=== PATIENT | female | born 1945 | race Caucasian/White ===

== ENCOUNTER → 2023-11-08 14:50 | Outpatient (REF) | payer MEDICARE, OTHER, SELFPAY | LOC: RAD 14:50 | PROVIDERS: ATTENDING PHYSICIAN Family Medicine | DX: R05.3 Chronic cough (principal) | CPT/HCPCS: 71046 ==

== ENCOUNTER 2023-11-12 00:47 | Emergency (ER) | payer MEDICARE, OTHER, SELFPAY ==
[2023-11-12 00:51] VITALS: BP 158/76
--- NOTE | 2023-11-12 01:59 | ED.GENMED ---
History of Present Illness
<Jyothi Campo DO, Resident - Last Filed: 11/12/23 03:31>
General
Chief Complaint: Throat Problem
Source: patient
Exam Limitations: none
Time Seen by Provider: 11/12/23 01:48
History of Present Illness
History of Present Illness:
Pt is a 78 -year-old female presenting to the ED with throat pain for the last 2 weeks. The symptoms begin to worsen tonight around 12:30 AM. She recently completed a course of antibiotics and is taking methylprednisolone taper. She has ongoing
sensations of phlegm buildup at the base of her throat which if she lays flat for too long make her feel like she cannot breathe. She has been coughing up phlegm mostly clear. She describes her cough as a continuous and cyclic cough that makes her
short of breath. She states she has no headaches, nausea, vomiting, diarrhea, chest pain, GI symptoms or pain elsewhere. She took 2 extra strength Tylenol tonight at 10:30 PM and 1 cetirizine. She recently her family medicine doctor who ordered
her a chest x-ray. They stated that lungs were clear.
Past History
<Jyothi Campo DO, Resident - Last Filed: 11/12/23 03:31>
Past History
ED Past Medical History: None
ED Past Surgical History: None
Social History
Personal:
Living: with family
Employment: Not employed
Review of Systems
<Jyothi Campo DO, Resident - Last Filed: 11/12/23 03:31>
Review of Systems
Constitutional: Reports fatigue and sleep disturbance
EENT: Reports sore throat and other (plegm, cough)
Respiratory: Reports cough and trouble breathing
Cardiac: Reports no symptoms
ABD/GI: Reports no symptoms
Neurological: Reports no symptoms
Phy Exam
<Jyothi Campo DO, Resident - Last Filed: 11/12/23 03:31>
General Physical Exam
General Presentation: well appearing and mild distress
General age: appears stated age
General Skin: warm and dry
General Habitus: normal and elderly
General Mental: alert
General Hydration: appears well hydrated
Cardiovascular Exam
Cardiovascular Exam: regular rate/rhythm, no edema, no gallop, no JVD and no murmur
Pulmonary Exam
Pulmonary Exam: lungs clear, no respiratory distress, no rales, chest non tender, no crackles, no rhonchi, no stridor and no wheezing
Course
<Jyothi Campo DO, Resident - Last Filed: 11/12/23 03:31>
Orders/Labs/Results
Orders:
Orders
11/12/23 02:09
CR Soft Tissue Neck Urgent
Comment:
Reason For Exam: throat pain
Vital Signs
Initial and Last Documented VS:
Initial Vital Signs
Temp Pulse Resp BP Pulse Ox
98.6 F 66 24 158/76 100
11/12/23 00:51 11/12/23 00:51 11/12/23 00:51 11/12/23 00:51 11/12/23 00:51
Last Documented Vital Signs
Temp Pulse Resp BP Pulse Ox
98.6 F 66 24 158/76 100
11/12/23 00:51 11/12/23 00:51 11/12/23 00:51 11/12/23 00:51 11/12/23 00:51
<Garrick Betts DO - Last Filed: 11/12/23 03:29>
Orders/Labs/Results
Orders:
Orders
11/12/23 02:09
CR Soft Tissue Neck Urgent
Comment:
Reason For Exam: throat pain
Vital Signs
Initial and Last Documented VS:
Initial Vital Signs
Temp Pulse Resp BP Pulse Ox
98.6 F 66 24 158/76 100
11/12/23 00:51 11/12/23 00:51 11/12/23 00:51 11/12/23 00:51 11/12/23 00:51
Last Documented Vital Signs
Temp Pulse Resp BP Pulse Ox
98.6 F 66 24 158/76 100
11/12/23 00:51 11/12/23 00:51 11/12/23 00:51 11/12/23 00:51 11/12/23 00:51
<Jyothi Campo DO, Resident - Last Filed: 11/12/23 03:31>
MDM/Problems Addressed
Differential Diagnosis Includes:
Viral URI, pertussis, COVID, strep
MDM/Problems Addressed:
Patient is a 78-year-old female presenting to the ED for throat pain, shortness of breath, sensations of phlegm buildup.X-ray soft tissue neck was negative. Patient will be given Decadron in the ED and a script for VAZATAqasimCubicl [place].
Chronic conditions affecting care:
N/A
Acute Exacerbation and/or Progression of Chronic Illness:
N/A
<Garrick Betts DO - Last Filed: 11/12/23 03:29>
*Critical Care Note
Total Time (30-74mins, 75-104mins- exclusive of procedures): Not Applicable
ED Attending Note
<Jyothi Campo DO, Resident - Last Filed: 11/12/23 03:31>
-
Portions of this chart may have been created with voice recognition software.� Occasional wrong word or��sound alike� substitutions may have occurred due to the inherent limitations of voice recognition software.
<Garrick Betts DO - Last Filed: 11/12/23 03:29>
ED Attending Note
Patient seen and examined by attending physician: Yes
I performed a history and physical exam of patient and discussed management with resident, I reviewed resident's note and agree with documented findings and plan of care.: Yes
ED Attending Note:
Pleasant 78-year-old female who presents with phlegm that has been settling into her larynx. She states that she feels that she cannot breathe. Patient was on a course of steroids and antibiotics. She has been taking Tessalon Perles which seem to
have helped. Denies fever or chills. Patient [facility] her [facility] between [place] and [facility]. She has tremendous allergies and has been on [id number] remedies. Patient was seen in conjunction with the biomedical technician. I have
reviewed and agree with her history and treatment plan. On my independent physical exam patient is resting comfortably. Heart is regular rate and rhythm. Lungs are clear to auscultation bilaterally without wheezes rales or rhonchi present. She
is currently not coughing. Induced cough which sounds dry. Moves all 4 extremities. Skin is warm and dry. Plan is to give her Decadron dose. Prescription for Tessalon. Follow-up with ENT and/or allergy.
Discharge Plan
Departure
Patient Disposition: Home (Routine Discharge)
Date of Disposition: 11/12/23
Time of Disposition: 03:26
Patient with high blood pressure during this ER visit?: Yes
Condition: Good
Discharge Problem:
Cough, Acute bronchitis
Instructions: Cough, Adult ED
Prescriptions:
New
benzonatate 100 mg capsule
100 mg PO TID PRN (Reason: Cough) Qty: 20 0RF
No Action
cetirizine [Zyrtec] 10 mg Tablet
10 mg PO DAILY
calcium carbonate [Calcium 600] 600 mg calcium (1,500 mg) Tablet
600 mg PO DAILY
multivitamin Tablet
1 tab PO DAILY
zoledronic [id number] [Reclast] 5 mg/100 mL Piggyback
5 mg IV ONCE
Referrals:
Fabian Potts MD [Family Provider] -
Interventions
Interventions:
*Risk Screen - Suicide Last Done: 11/12/23 00:51
*General Assessment Last Done: 11/12/23 02:03
*Neglect/Abuse Screening Last Done: 11/12/23 00:51
ED- Fall Risk Assessment Last Done: 11/12/23 02:03
ED-EENT Assessment Last Done: 11/12/23 02:03
ED- Pulmonary Assessment Last Done: 11/12/23 02:03
Discharge Date and Time
Print Language: [id number]
[2023-11-12] MEDS: DECADRON 10 MG PO (03:39)
== END 2023-11-12 03:44 | disposition home or self-care (01) ==
LOC: EMR 00:47
PROVIDERS: EMERGENCY PHYSICIAN Student in an Organized Health Care Education/Training Program; FAMILY PHYSICIAN Family Medicine
DX: R07.0 Pain in throat (principal); R06.02 Shortness of breath; R05.9 Cough, unspecified; R53.83 Other fatigue; J20.9 Acute bronchitis, unspecified; R03.0 Elevated blood-pressure reading, without diagnosis of hypertension; Z88.0 Allergy status to penicillin
CPT/HCPCS: 99283; 70360

== ENCOUNTER 2023-12-24 06:08 | Outpatient (RCR) | payer MEDICARE, OTHER, SELFPAY | END 2023-12-24 23:59 | disposition home or self-care (01) | LOC: RST 06:08 | PROVIDERS: ATTENDING PHYSICIAN Otolaryngology; FAMILY PHYSICIAN Family Medicine | DX: R49.0 Dysphonia (principal) | CPT/HCPCS: 92524 ==

== ENCOUNTER 2024-01-16 08:42 | Outpatient (RCR) | payer MEDICARE, OTHER, SELFPAY | END 2024-01-16 23:59 | disposition home or self-care (01) | LOC: RST 08:42 | PROVIDERS: ATTENDING PHYSICIAN Otolaryngology; FAMILY PHYSICIAN Family Medicine | DX: R49.0 Dysphonia (principal) | CPT/HCPCS: 92507 ==

== ENCOUNTER 2024-02-05 09:24 | Outpatient (RCR) | payer MEDICARE, OTHER, SELFPAY | END 2024-02-05 23:59 | disposition home or self-care (01) | LOC: RST 09:24 | PROVIDERS: ATTENDING PHYSICIAN Otolaryngology; FAMILY PHYSICIAN Family Medicine | DX: R49.0 Dysphonia (principal) | CPT/HCPCS: 92507 ==

== ENCOUNTER → 2024-09-11 14:54 | Outpatient (REF) | payer MEDICARE, OTHER, SELFPAY ==
[2024-09-13 23:52] LABS: Endomysial IgA Antibody Titer <1:10 (<1:10)
[2024-09-14 01:08] LABS: IgA < 40 mg/dl (70-400)
== END ==
LOC: RAD 14:54
PROVIDERS: ATTENDING PHYSICIAN Internal Medicine Gastroenterology
DX: K52.9 Noninfective gastroenteritis and colitis, unspecified (principal)
CPT/HCPCS: 36415; 74018; 82784; 83516; 86231

== ENCOUNTER → 2024-09-12 09:26 | Outpatient (REF) | payer MEDICARE, OTHER, SELFPAY | LOC: REG 09:26 | PROVIDERS: ATTENDING PHYSICIAN Internal Medicine Gastroenterology; FAMILY PHYSICIAN Internal Medicine | DX: K52.9 Noninfective gastroenteritis and colitis, unspecified (principal) | CPT/HCPCS: 82653; 82705; 83993; 87045; 87046; 87324; 87427; 87449; 89055 ==

== ENCOUNTER 2024-09-14 11:10 | Outpatient (RCR) | payer MEDICARE, OTHER, SELFPAY | END 2024-09-14 23:59 | disposition home or self-care (01) | LOC: RST 11:10 | PROVIDERS: FAMILY PHYSICIAN Family Medicine | DX: J38.7 Other diseases of larynx (principal); R49.0 Dysphonia | CPT/HCPCS: 92507; 92524 ==

== ENCOUNTER 2024-10-26 10:28 | Outpatient (RCR) | payer MEDICARE, OTHER, SELFPAY | END 2024-10-26 23:59 | disposition home or self-care (01) | LOC: RST 10:28 | PROVIDERS: FAMILY PHYSICIAN Family Medicine | DX: J38.7 Other diseases of larynx (principal); R49.0 Dysphonia | CPT/HCPCS: 92507 ==